=== PATIENT | female | born 1970 | race Caucasian/White ===

== ENCOUNTER 2017-07-16 08:11 | Emergency (ER) | payer OTHER ==
[2017-07-16 08:17] VITALS: BMI 28.3
[2017-07-16] MEDS ORDERED: NS 1000 ML 1,000 ML ONE (08:28)
[2017-07-16] MEDS ORDERED: ZOFRAN INJ 4 MG VIAL ONE (08:28)
[2017-07-16] MEDS ORDERED: ZOFRAN INJ 4 MG VIAL IVP ONE (08:36)
--- NOTE | 2017-07-16 08:47 | DR.EXTPAIN ---
HPI - Time seen Time seen: 08:41 - PCP Primary Care Physician: jasmyne see - Complaint/Symptoms Chief Complaint Doctor Comments: Rt. mid back pain x 2 weeks. Seen at PCP's office for same last week on 07/09/17. A CT SCan was ordered and this was done yesterday. She had called into the office for the report and was informed that there was a kidney/ureteral stone on the left side along with findings of bowel thickening. A Hydrocodone or Percocet was called into pharmacy for her yesterday. She took a pill at about 1500 hrs and 2200 hrs yesterday for pain but not with much help. Today, she feels light headed and has some nausea but no vomitting. Chief Complaint:: patient has been having right mid back pain for 2 weeks and this morning she woke up dizzy and nauseated - Nurses notes reviewed Nurses Notes Review: Yes - Source History Provided: Patient - Mode of arrival Mode of Arrival: Wheelchair - Timing Onset of Chief Complaint: 07/02/17 PMH - PMH Past Medical History: Yes Past Medical History: Hypothyroidism Past Surgical History: Yes Surgical History: VP [employer] Surgery, Hysterectomy - Family History History of Family Medical Conditions: No - Social History Does patient currently use any type of tobacco product: No Have you used tobacco products in the last 12 months: No Type of Tobacco Use: None Does any household member use tobacco: No Alcohol Use: None Do you use any recreational Drugs:: No Lives With: Family Lives Where: Home - infectious screening In the last 2 months have you had wt loss of >10#?: NO Have you had fever, night sweats or hemotysis?: No Have you traveled outside the country in the last 6 months?: No Isolation: Standard ROS - Review of Systems Constitutional: No Symptoms Reported Eyes: No Symptoms Reported ENTM: No Symptoms Reported Respiratoy: No Symptoms Reported Cardiovascular: No Symptoms Reported Gastrointestinal/Abdominal: Nausea Genitourinary: No Symptoms Reported Neurological: No Symptoms Reported Musculoskeletal: Back Pain (right midback) Integumentary: No Symptoms Reported Hematologic/Lymphatic: No Symptoms Reported Endocrine: No Symptoms Reported Psychiatric: No Symptoms Reported All Other Systems: Reviewed and Negative PE - Vital Signs Vitals: Temperature 98.9 F Pulse Rate [Left Brachial] 50 Pulse Rate 79 Respiratory Rate 16 Blood Pressure [Left Arm] 105/64 Blood Pressure 117/69 O2 Sat by Pulse Oximetry 96 - General Limitations: No Limitations General Appearance: Alert, In No Apparent Distress - Head Head Exam: Normal Inspection - Eyes Eye exam: Normal Appearance, PERRL, EOMI - Neck Neck Exam: Normal Inspection - Chest Chest Inspection: Normal Inspection - Respiratory Respiratory Exam: Normal Lung Sounds Bilat - Cardiovascular Cardiovascular Exam: Regular Rate, Normal Rhythm, Normal Heart Sounds, +S1, +S2 - Abdominal Exam Abdominal Exam: Normal Inspection, Normal Bowel Sounds, Soft - Extremities Extremities Exam: Normal Inspection, Full ROM - Back Back Exam: Normal Inspection, Tenderness, (R) CVA Tenderness - Neurological Neurological Exam: Alert, Oriented X3 - Psychiatric Psychiatric Exam: Normal Affect, Normal Mood - Skin Skin Exam: Warm, Dry, Intact, Normal Color Course - Reevaluation 1st: - Consultation Called: 13:10 Call Returned: 13:13 Consultation Comments: Pt's. presentation, clinical exam and CT Scan findings were discussed with Dr. Light (GEn. Surgeon). He states that the pt. can be f/ u on outpt. basis. he will see the pt. in his office on Wednesday (07/19/17). The pt. and spouse were made aware of this recommendation and it was fine with them. - Education/Counseling Education/Counseling: Patient, Family, Education, Counseling Educated On: Treatment, Diagnosis, Prognosis, Needs for Follow Up ROR - Labs Reviewed Result Diagrams: 07/16/17 08:30 07/16/17 08:30 Laboratory: WBC 11.8 X10^3/uL (3.6-10.0) H 07/16/17 08:30 RBC 4.69 X10^6/uL (3.5-5.4) 07/16/17 08:30 Hgb 14.5 g/dL (12.0-16.0) 07/16/17 08:30 Hct 42.8 % (36.0-47.0) 07/16/17 08:30 MCV 91.4 fL (80.0-100.0) 07/16/17 08:30 MCH 30.9 pg (27.0-34.0) 07/16/17 08:30 MCHC 33.9 g/dL (33.0-35.0) 07/16/17 08:30 RDW 13.1 % (11.6-16.5) 07/16/17 08:30 Plt Count 316 X10^3/uL (150.0-450.0) 07/16/17 08:30 MPV 8.7 fL (7.4-11.0) 07/16/17 08:30 Neut % (Auto) 69.1 % (42.0-75.0) 07/16/17 08:30 Lymph % (Auto) 23.1 % (21.0-51.0) 07/16/17 08:30 [place] % (Auto) 5.5 % (0.0-13.0) 07/16/17 08:30 Eos % (Auto) 1.3 % (0.9-2.9) 07/16/17 08:30 Baso % (Auto) 1.0 % (0.2-1.0) 07/16/17 08:30 Neut # (Auto) 8.1 x10^3/uL (2.2-4.8) H 07/16/17 08:30 Lymph # (Auto) 2.7 X10^3/uL (1.3-2.9) 07/16/17 08:30 [place] # (Auto) 0.7 x10^3/uL (0.3-0.8) 07/16/17 08:30 Eos # (Auto) 0.2 x10^3/uL (0.0-0.2) 07/16/17 08:30 Baso # (Auto) 0.1 X10^3/uL (0.0-0.1) 07/16/17 08:30 Absolute Nucleated RBC 0.0 /100WBC 07/16/17 08:30 Sodium 138 mmol/L (136-145) 07/16/17 08:30 Corrected Sodium 139 mmol/L (136-145) 07/16/17 08:30 Potassium 3.9 mmol/L (3.5-5.1) 07/16/17 08:30 Chloride 106 mmol/L (98-107) 07/16/17 08:30 Carbon Dioxide 24.9 mmol/L (21-32) 07/16/17 08:30 BUN 13 mg/dL (7-18) 07/16/17 08:30 Creatinine 1.05 mg/dL (0.55-1.02) H 07/16/17 08:30 Est GFR (MDRD) Af Amer > 60 (>60) 07/16/17 08:30 Est GFR (MDRD) Non-Af 59 (>60) 07/16/17 08:30 Glucose 121 mg/dL (65-99) H 07/16/17 08:30 Calcium 7.9 mg/dL (8.5-10.1) L 07/16/17 08:30 Corrected Calcium TNP 07/16/17 08:30 Total Bilirubin 0.20 mg/dL (0.2-1.0) 07/16/17 08:30 AST 14 Units/L (15-37) L 07/16/17 08:30 ALT 21 Units/L (12-78) 07/16/17 08:30 Alkaline Phosphatase 95 Units/L (46-116) 07/16/17 08:30 Total Protein 7.2 g/dL (6.4-8.2) 07/16/17 08:30 Albumin 3.7 g/dL (3.4-5.0) 07/16/17 08:30 Globulin 3.5 g/dL (2.5-4.5) 07/16/17 08:30 Albumin/Globulin Ratio 1.1 Ratio (1.1-2.1) 07/16/17 08:30 Specimen Type Clean catch urine 07/16/17 11:02 Urine Color Yellow (YELLOW) 07/16/17 11:02 Urine Appearance Hazy (CLEAR) 07/16/17 11:02 Urine pH 5.0 (5.0 - 8.0) 07/16/17 11:02 Ur Specific [place] 1.015 (1.000-1.030) 07/16/17 11:02 Urine Protein Negative (NEGATIVE) 07/16/17 11:02 Urine Glucose (UA) Negative (NEGATIVE) 07/16/17 11:02 Urine Ketones Negative (NEGATIVE) 07/16/17 11:02 Urine Occult Blood 3+ (NEGATIVE) 07/16/17 11:02 Urine Nitrite Negative (NEGATIVE) 07/16/17 11:02 Urine Bilirubin Negative (NEGATIVE) 07/16/17 11:02 Urine Urobilinogen Normal (NORMAL) 07/16/17 11:02 Ur Leukocyte Esterase 1+ (NEGATIVE) 07/16/17 11:02 Urine RBC 3-5 /HPF (NONE SEEN) 07/16/17 11:02 Urine WBC 0-2 /HPF (NONE SEEN) 07/16/17 11:02 Ur Squamous Epith Cells Few /HPF (NEGATIVE) 07/16/17 11:02 Urine Bacteria Negative /HPF (NEGATIVE) 07/16/17 11:02 Ur Culture Indicated? No/not indicated 07/16/17 11:02 - Diagnosis Discharge Problem: Flank pain - Discharge Plan Disposition: 01 HOME, SELF-CARE Condition: Stable - Follow ups/Referrals Follow ups/Referrals: JASMYNE SEE [Primary Care Provider] - 3 days - Instructions Instructions: Abdominal Pain, Adult, [id number]
[2017-07-16] MEDS ORDERED: PHENERGAN INJ 25 MG IV ONE (08:57)
[2017-07-16] MEDS ORDERED: PHENERGAN INJ 25 MG ONE (08:58)
[2017-07-16] MEDS ORDERED: NS 1000 ML 1,000 ML IV SCH (09:00)
[2017-07-16 09:07] LABS: BASOPHILS # (AUTO) 0.1 X10^3/uL (0.0-0.1); EOSINOPHILS # (AUTO) 0.2 x10^3/uL (0.0-0.2); EOSINOPHILS % (AUTO) 1.3 % (0.9-2.9); HEMATOCRIT 42.8 % (36.0-47.0); HEMOGLOBIN 14.5 g/dL (12.0-16.0); LYMPHOCYTES # (AUTO) 2.7 X10^3/uL (1.3-2.9); LYMPHOCYTES % (AUTO) 23.1 % (21.0-51.0); MEAN CORPUSCULAR HEMOGLOBIN 30.9 pg (27.0-34.0); MEAN CORPUSCULAR HGB CONC 33.9 g/dL (33.0-35.0); MEAN CORPUSCULAR VOLUME 91.4 fL (80.0-100.0); MEAN PLATELET VOLUME 8.7 fL (7.4-11.0); MONOCYTES # (AUTO) 0.7 x10^3/uL (0.3-0.8); MONOCYTES % (AUTO) 5.5 % (0.0-13.0); NEUTROPHILS # (AUTO) 8.1 x10^3/uL (2.2-4.8); NEUTROPHILS % (AUTO) 69.1 % (42.0-75.0); PLATELET COUNT 316 X10^3/uL (150.0-450.0); RED BLOOD COUNT 4.69 X10^6/uL (3.5-5.4); RED CELL DISTRIBUTION WIDTH 13.1 % (11.6-16.5); WHITE BLOOD COUNT 11.8 X10^3/uL (3.6-10.0)
[2017-07-16] MEDS ORDERED: MORPHINE SULFATE INJ 2 MG INJ IVP ONE (09:24)
[2017-07-16] MEDS ORDERED: MORPHINE SULFATE INJ 2 MG INJ ONE (09:30)
[2017-07-16 09:31] LABS: ALANINE AMINOTRANSFERASE 21 Units/L (12-78); ALBUMIN 3.7 g/dL (3.4-5.0); ALKALINE PHOSPHATASE 95 Units/L (46-116); ASPARTATE AMINO TRANSFERASE 14 Units/L (15-37); BLOOD UREA NITROGEN 13 mg/dL (7-18); CALCIUM 7.9 mg/dL (8.5-10.1); CARBON DIOXIDE 24.9 mmol/L (21-32); CHLORIDE 106 mmol/L (98-107); COR NA(FOR HYPERGLY) 139 mmol/L (136-145); CREATININE 1.05 mg/dL (0.55-1.02); SODIUM 138 mmol/L (136-145); TOTAL PROTEIN 7.2 g/dL (6.4-8.2); eGFR BLACK RACES > 60 (>60); eGFR NON BLACK RACES 59 (>60)
[2017-07-16 10:01] VITALS: BP 105/64
[2017-07-16 11:20] LABS: BILIRUBIN,URINE NEGATIVE (NEGATIVE); BLOOD/HEMOGLOBIN,URINE 3+ (NEGATIVE); GLUCOSE, URINE NEGATIVE (NEGATIVE); KETONES,URINE NEGATIVE (NEGATIVE); LEUKOCYTE ESTERASE ,URINE 1+ (NEGATIVE); NITRITES,URINE NEGATIVE (NEGATIVE); PROTEIN,URINE NEGATIVE (NEGATIVE); UROBILINOGEN,URINE NORMAL (NORMAL)
[2017-07-16 11:28] LABS: APPEARANCE,URINE HAZY (CLEAR); COLOR,URINE YELLOW (YELLOW)
[2017-07-16 11:30] LABS: BACTERIA,URINE NEGATIVE /HPF (NEGATIVE); SQUAMOUS EPITHELIAL CELL,UR FEW /HPF (NEGATIVE)
--- NOTE | 2017-07-16 12:08 | CT ---
HISTORY: Right flank pain Study: CT abdomen pelvis with contrast Comparison: None Technique: Axial post-contrast images with coronal and sagittal reformats. Dose reduction procedures were used with mA/kv adjusted for body size. Findings: The lung bases are clear. The liver, spleen, adrenal glands, and pancreas are within normal limits. N o opaque stones are visible within the gallbladder. The kidneys are unobstructed and without stones o r masses. No ureteral calculi are identified. No intraperitoneal or retroperitoneal lymphadenopathy o f significance is identified. The appendix is not identified. There are no secondary signs of appendi citis present. There are no findings suggestive of diverticulitis or colitis. There is abnormal posit ion of a cluster of proximal jejunal loops which lie in the right upper quadrant rather than the left upper quadrant. The bowel is mildly dilated however there is free passage of contrast through the sm all bowel to the colon. This is associated with some swirling of the mesenteric vasculature best visu alized on series 7 image 39. This is suspicious for a minimally obstructing right-sided periduodenal hernia. There is passage of the oral contrast into the more distal small bowel which is of smaller ca liber bend these jejunal loops. Examination of the pelvis demonstrated no evidence for pelvic masses, pelvic fluid, or pelvic lymphadenopathy. No lytic or blastic skeletal lesions are identified. IMPRESSION: Unusual position of a cluster of mildly dilated proximal jejunal loops lying in the right rather than the left upper quadrant. This is suspicious for a right periduodenal hernia with only minimal obstru ction to the flow barium, less likely it could be a manifestation of congenital incomplete rotation o f the small bowel. No evidence for obstructing renal or ureteral calculi No significant acute abnormality in the abdomen or pelvis. Reported By:
== END 2017-07-16 13:49 | disposition home or self-care (01) ==
LOC: ER 08:25
DX: R10.84 Generalized abdominal pain (principal)
CPT/HCPCS: 36415; 74177; 80053; 81001; 85025; 96365; 96367; 96374; 96375; 99283; 99284; A4222; J2270; J2405; J2550